=== PATIENT | male | born 1980 | race African-American/Black ===

== ENCOUNTER 2020-04-15 00:07 | Emergency (ER) | payer BC, OTHER ==
[~2020-04-15] VITALS: Ht 170.2 cm; Wt 65.8 kg
--- NOTE | 2020-04-15 00:12 | NUR ---
while triaging another pt, RA 60 placed pt in wr.
[2020-04-15 00:18] VITALS: BP 140/77
[2020-04-15] MEDS ORDERED: OLANZAPINE 5 MG TABLET PO ONE (00:30)
--- NOTE | 2020-04-15 00:49 | NUR ---
Patient eloped from facility. ER MD notified.
== END 2020-04-15 00:51 | disposition left against medical advice (07) ==
LOC: ER 00:10
DX: R44.2 Other hallucinations (principal); Z59.0 Homelessness